=== PATIENT | male | born 2000 | race Caucasian/White ===

== ENCOUNTER 2024-06-01 10:20 | Day surgery (SDC) | payer OTHER ==
[~2024-06-01] VITALS: Ht 175.3 cm; Wt 74.8 kg
[2024-06-01] MEDS ORDERED: LR 1,000 ML IV SCH ×2 (10:50→12:10)
[2024-06-01] MEDS ORDERED: SUGAMMADEX SODIUM 500 MG/5 ML VIAL (BRIDION) As Ordered ONE (11:28)
[2024-06-01] MEDS ORDERED: dexmedeTOMIDine (4MCG/ML)200MCG/50ML BTL (PRECEDEX) As Ordered ONE (11:28)
[2024-06-01] MEDS ORDERED: LIDOCAINE 2% 100MG/5ML SDV (FOR ANES.) As Ordered ONE (11:28)
[2024-06-01] MEDS ORDERED: fentaNYL 250 MCG/5 ML INJECTION As Ordered ONE (11:28)
[2024-06-01] MEDS ORDERED: ONDANSETRON 4MG 2ML VIAL As Ordered ONE (11:28)
[2024-06-01] MEDS ORDERED: propofoL 200 MG/20 ML VIAL As Ordered ONE (11:28)
[2024-06-01] MEDS ORDERED: MIDAZOLAM INJ 2MG/2ML VIAL As Ordered ONE (11:28)
[2024-06-01] MEDS ORDERED: ROCURONIUM BROMIDE 50MG/5ML VIAL As Ordered ONE (11:28)
[2024-06-01] MEDS ORDERED: ACETAMINOPHEN 1000MG 100ML IV BAG As Ordered ONE (11:30)
[2024-06-01] MEDS ORDERED: ONDANSETRON 4MG 2ML VIAL IV PRN (12:10)
[2024-06-01] MEDS: oxyCODONE 5MG TAB PO PRN (12:45)
[2024-06-01] MEDS: fentaNYL 100 MCG/2 ML INJECTION IV PRN (12:58)
[2024-06-01 13:35] VITALS: BP 135/97; TEMP 97.3; O2SAT 100
== END 2024-06-01 14:10 | disposition home or self-care (01) ==
LOC: M SDC 10:20
PROVIDERS: ATTEND Otolaryngology
DX: J35.8 Other chronic diseases of tonsils and adenoids (principal); K21.9 Gastro-esophageal reflux disease without esophagitis
CPT/HCPCS: 42826; 88302; J0131; J0665; J1100; J2250; J2405; J3010